=== PATIENT | female | born 1940 | race Caucasian/White ===

== ENCOUNTER 2019-03-18 10:00 | Observation (INO) ==
[2019-03-18] MEDS ORDERED: Naloxone 0.4 MG/ML INJ IVP PRN (10:59)
[2019-03-18 12:07] LABS: Basophils # 0.1 K/mcL (0.0-0.2); Basophils % 0.6 %; Eosinophils # 0.2 K/mcL (0.0-0.6); Eosinophils % 1.8 %; Hematocrit 40.2 % (35.3-44.9); Hemoglobin 13.4 g/dL (11.5-15.4); Immature Granulocytes % 0.8 % (0-4); Lymphocytes # 1.3 K/mcL (0.6-4.6); Lymphocytes % 15.6 %; Mean Corpuscular HGB Conc 33.3 g/dL (31.6-35.5); Mean Corpuscular Hemoglobin 31.2 pg (28.0-33.3); Mean Corpuscular Volume 93.7 fL (83.0-100.0); Mean Platelet Volume 10.5 fL (9.4-12.4); Monocytes # 0.7 K/mcL (0.0-1.3); Monocytes % 8.8 %; Platelet Count 179 K/mcL (140-400); Red Blood Count 4.29 M/mcL (3.82-4.97); Red Cell Distribution Width 13.8 % (11.5-14.5); Segmented Neutrophils % 72.4 %; White Blood Count 8.3 K/mcL (4.3-11.1)
[2019-03-18 12:24] LABS: BUN/Creatinine Ratio 26 (6-26); Blood Urea Nitrogen 24 mg/dL (8-23); Calcium 9.3 mg/dL (8.6-10.3); Carbon Dioxide 29 mEq/L (23-29); Chloride 107 mEq/L (98-107); Glucose 89 mg/dL (70-105); Osmolality,Calculated 296 (280-300); Potassium 4.7 mEq/L (3.5-5.1); Sodium 141 mEq/L (136-145); eGFR For African Americans > 60 (> 60); eGFR For Non-African Americans 58 (> 60)
[2019-03-18] MEDS: Furosemide 20 MG TABLET PO SCH (16:54)
[2019-03-18] MEDS: Apixaban 5 MG TABLET PO SCH (20:52)
[2019-03-18] MEDS ORDERED: Furosemide 40 MG TABLET PO SCH (21:00)
[2019-03-18] MEDS ORDERED: NON-FORMULARY MEDICATION 1 EACH EACH (Calcium Carbonate/Vitamin D3 [Calcium 500-Vit D3 400 PO SCH (21:00)
[2019-03-18] MEDS: B12 PO SCH (21:14)
[2019-03-18] MEDS: ALGAL OIL PO SCH (21:14)
[2019-03-18] MEDS: B6 PO SCH (21:14)
[2019-03-18] MEDS: LEVOMEFOLATE PO SCH (21:14)
[2019-03-19] MEDS: Apixaban 5 MG TABLET PO SCH ×2 (07:38→21:18)
[2019-03-19] MEDS: Furosemide 20 MG TABLET PO SCH ×2 (07:38→16:42)
[2019-03-19] MEDS: Cholecalciferol (D-3) 1,000 UNIT (25MCG) TABLET PO SCH (07:38)
[2019-03-19] MEDS: Aspirin Enteric Coated 81 MG Tablet PO SCH (07:39)
[2019-03-19] MEDS: B6 PO SCH ×2 (07:39→21:18)
[2019-03-19] MEDS: ALGAL OIL PO SCH ×2 (07:39→21:18)
[2019-03-19] MEDS: B12 PO SCH ×2 (07:39→21:18)
[2019-03-19] MEDS: *HR* Metformin 500 MG TABLET PO SCH (07:39)
[2019-03-19] MEDS: LEVOMEFOLATE PO SCH ×2 (07:39→21:18)
[2019-03-20] MEDS: Aspirin Enteric Coated 81 MG Tablet PO SCH (07:54)
[2019-03-20] MEDS: Cholecalciferol (D-3) 1,000 UNIT (25MCG) TABLET PO SCH (07:54)
[2019-03-20] MEDS: Furosemide 20 MG TABLET PO SCH ×2 (07:54→16:03)
[2019-03-20] MEDS: Apixaban 5 MG TABLET PO SCH ×2 (07:54→21:03)
[2019-03-20] MEDS: *HR* Metformin 500 MG TABLET PO SCH (08:02)
[2019-03-20] MEDS: ALGAL OIL PO SCH ×2 (12:02→21:03)
[2019-03-20] MEDS: LEVOMEFOLATE PO SCH ×2 (12:02→21:03)
[2019-03-20] MEDS: B6 PO SCH ×2 (12:02→21:03)
[2019-03-20] MEDS: B12 PO SCH ×2 (12:02→21:03)
[2019-03-21] MEDS: Furosemide 20 MG TABLET PO SCH (07:30)
[2019-03-21] MEDS: Aspirin Enteric Coated 81 MG Tablet PO SCH (07:30)
[2019-03-21] MEDS: *HR* Metformin 500 MG TABLET PO SCH (07:30)
[2019-03-21] MEDS: Apixaban 5 MG TABLET PO SCH (07:30)
[2019-03-21] MEDS: Cholecalciferol (D-3) 1,000 UNIT (25MCG) TABLET PO SCH (07:30)
[2019-03-21] MEDS: LEVOMEFOLATE PO SCH (07:31)
[2019-03-21] MEDS: ALGAL OIL PO SCH (07:31)
[2019-03-21] MEDS: B6 PO SCH (07:31)
[2019-03-21] MEDS: B12 PO SCH (07:31)
[2019-03-21 11:48] VITALS: BP 150/61
== END 2019-03-21 12:50 | disposition home or self-care (01) ==
LOC: 2ANU
PROVIDERS: ADMIT Internal Medicine Clinical Cardiac Electrophysiology; ATTEND Internal Medicine Clinical Cardiac Electrophysiology

== ENCOUNTER 2022-01-18 10:04 | Inpatient (IN) ==
[2022-01-18] MEDS ORDERED: CeFAZolin Syr 2,000MG/20 ML 2,000 MG/20 ML SYRINGE IVPB ONE (10:45)
[2022-01-18] MEDS ORDERED: Ringers Solution, Lactated 1,000 ML IVC SCH (10:45)
[2022-01-18] MEDS ORDERED: *HR* FentaNYL (PF) 100 MCG/2 ML VIAL IVP PRN (10:50)
[2022-01-18] MEDS ORDERED: Heparin 1,000 UNITS/500 mL 500 ML ONE (11:50)
[2022-01-18] MEDS ORDERED: Iopamidol - 300 100 ML INFUS..BTL ONE (12:00)
[2022-01-18] MEDS ORDERED: Protamine Sulfate 50 MG/5 ML VIAL IVP ONE (12:00)
[2022-01-18] MEDS ORDERED: Heparin 1,000 UNITS/500 mL 1,500 ML ONE (12:00)
[2022-01-18] MEDS ORDERED: ceFAZolin 1,000 MG, Sodium Chloride IRRigation 1,000 ML IR ONE (12:00)
[2022-01-18] MEDS ORDERED: Ondansetron 4 MG/2 ML VIAL ONE (12:04)
[2022-01-18] MEDS ORDERED: *HR* Rocuronium Bromide 50 MG/5 ML VIAL ONE ×2 (12:04→14:00)
[2022-01-18] MEDS ORDERED: Lidocaine -MPF 2% 2 ML VIAL ONE (12:04)
[2022-01-18] MEDS ORDERED: *HR* Propofol 200 MG/20 ML VIAL IVP ONE (12:05)
[2022-01-18] MEDS ORDERED: *HR* FentaNYL (PF) 100 MCG/2 ML VIAL ONE ×3 (12:36→15:10)
[2022-01-18] MEDS ORDERED: Sugammadex Sodium 200 MG/2 ML VIAL IV ONE (13:43)
[2022-01-18] MEDS ORDERED: EPHEDrine 50 MG/ML VIAL ONE (15:27)
[2022-01-18 17:20] LABS: ABG Base Excess -3 mEq/L (-2 to 3); ABG Chloride 110 mEq/L (98-107); ABG Glucose 144 mg/dL (60-95); ABG HCO3 22 mEq/L (21-27); ABG Ionized Calcium 1.01 mmol/L (1.15-1.35); ABG Oxygen Saturation 98 % (95-98); ABG PCO2 34 mmHg (35-45); ABG PH 7.42 pH Units (7.32-7.45); ABG PO2 105 mmHg (85-104); ABG TCO2 23 mEq/L (20-26)
[2022-01-18] MEDS ORDERED: *HR* HYDROMORPHONE 2 MG/ML VIAL ONE (18:07)
[2022-01-18] MEDS ORDERED: *HR* Labetalol 20 MG/4 ML SYRINGE IVP PRN (20:53)
[2022-01-18] MEDS ORDERED: Ondansetron 4 MG/2 ML VIAL IVP PRN (20:53)
[2022-01-18] MEDS ORDERED: Denosumab 60 MG/ML SYRINGE SQ SCH (20:53)
[2022-01-18] MEDS ORDERED: *HR* HYDROcodone/Acet 5/325 mg TABLET PO PRN (20:53)
[2022-01-18] MEDS ORDERED: *HR* OxyCODONE Immed Rel 5 MG TABLET PO PRN (20:53)
[2022-01-18] MEDS ORDERED: Naloxone 0.4 MG/ML INJ IVP PRN (20:53)
[2022-01-18] MEDS ORDERED: GOLYTELY PO PRN (20:53)
[2022-01-18] MEDS ORDERED: Acetaminophen 325 MG TABLET PO PRN (20:53)
[2022-01-18] MEDS: Clobetasol Propionate 0.05% 15 GM Cream Tube TP SCH (22:21)
[2022-01-18] MEDS ORDERED: 0.9 % Sodium Chloride 1,000 ML IVC SCH (23:45)
[2022-01-18] MEDS ORDERED: Albumin 25% 25gram/100mL 25 GM/100 ML IV.SOLN IVPB ONE (23:48)
[2022-01-18] MEDS ORDERED: 0.9 % Sodium Chloride 1,000 ML ONE (23:50)
[2022-01-19 00:27] LABS: Basophils % 0.2 %; Hematocrit 32.3 % (35.3-44.9); Hemoglobin 10.4 g/dL (11.5-15.4); Immature Granulocytes % 0.5 % (0-4); Lymphocytes # 0.5 K/mcL (0.6-4.6); Lymphocytes % 3.8 %; Mean Corpuscular HGB Conc 32.2 g/dL (31.6-35.5); Mean Corpuscular Hemoglobin 30.5 pg (28.0-33.3); Mean Corpuscular Volume 94.7 fL (83.0-100.0); Mean Platelet Volume 10.6 fL (9.4-12.4); Monocytes # 0.7 K/mcL (0.0-1.3); Neutrophils # 12.4 K/mcL (1.6-8.9); Platelet Count 208 K/mcL (140-400); Red Blood Count 3.41 M/mcL (3.82-4.97); Segmented Neutrophils % 90.5 %; White Blood Count 13.7 K/mcL (4.3-11.1)
[2022-01-19 00:38] LABS: BUN/Creatinine Ratio 16 (6-26); Blood Urea Nitrogen 14 mg/dL (8-23); Calcium 7.4 mg/dL (8.6-10.3); Carbon Dioxide 22 mEq/L (23-29); Chloride 109 mEq/L (98-107); Glucose 190 mg/dL (70-105); Osmolality,Calculated 292 (280-300); Potassium 4.6 mEq/L (3.5-5.1); Sodium 138 mEq/L (136-145); eGFR For African Americans > 60 (> 60); eGFR For Non-African Americans > 60 (> 60)
[2022-01-19 00:39] LABS: Troponin I < 0.03 ng/mL (< 0.04)
[2022-01-19] MEDS: CeFAZolin 2 GM/120 ML BAG IVPB SCH ×3 (00:43→16:08)
[2022-01-19] MEDS: Furosemide 40 MG TABLET PO SCH (08:32)
[2022-01-19] MEDS: lisinopriL 10 MG TABLET PO SCH (08:32)
[2022-01-19] MEDS: Aspirin Enteric Coated 81 MG Tablet PO SCH (10:22)
[2022-01-19] MEDS: Clobetasol Propionate 0.05% 15 GM Cream Tube TP SCH ×2 (10:23→21:43)
[2022-01-20] MEDS: Furosemide 40 MG TABLET PO SCH (08:35)
[2022-01-20] MEDS: lisinopriL 10 MG TABLET PO SCH (08:35)
[2022-01-20] MEDS: Aspirin Enteric Coated 81 MG Tablet PO SCH (08:36)
[2022-01-20] MEDS: Clobetasol Propionate 0.05% 15 GM Cream Tube TP SCH (08:39)
[2022-01-20 11:00] VITALS: O2SAT 100
[2022-01-20 15:48] VITALS: BP 108/49; PULSE 89; TEMP 98.7
== END 2022-01-20 17:00 | disposition home health service (06) | DRG 253 ==
LOC: SAMDAY 10:04 → 2NNU 20:50
PROVIDERS: ADMIT Surgery Vascular Surgery; ATTEND Surgery Vascular Surgery
PROC: VASFFBG (ICD-10-PCS; 2022-01-18 12:05)